=== PATIENT | female | born 1960 | race Caucasian/White ===

== ENCOUNTER 2024-05-20 10:26 | Emergency (ER) | payer OTHER ==
[~2024-05-20] VITALS: Ht 162.6 cm; Wt 60.3 kg
[2024-05-20 10:35] VITALS: PULSE 89; RESP 18; TEMP 98.7
[2024-05-20] MEDS: TETANUS/DIPHTHERIA TOX ADULT 0.5 ML SYR IM ONE (10:52)
[2024-05-20 12:29] VITALS: BP 127/87; PULSE 85; RESP 8; O2SAT 99
== END 2024-05-20 12:30 | disposition home or self-care (01) ==
LOC: ER 10:29
DX: S00.83XA Contusion of other part of head, initial encounter (principal); W18.39XA Other fall on same level, initial encounter; Y93.01 Activity, walking, marching and hiking; Y92.89 Other specified places as the place of occurrence of the external cause; Z85.841 Personal history of malignant neoplasm of brain; Z98.890 Other specified postprocedural states; E03.9 Hypothyroidism, unspecified; K21.9 Gastro-esophageal reflux disease without esophagitis; F32.A Depression, unspecified
CPT/HCPCS: 70450; 90471; 90714; 99283